=== PATIENT | male | born 1975 | race Two or more races ===

== ENCOUNTER 2020-07-29 12:39 | Emergency (ER) | payer SELFPAY ==
[~2020-07-29] VITALS: Ht 167.6 cm; Wt 109.1 kg
[2020-07-29] MEDS ORDERED: SODIUM CHLORIDE 0.9% 1,000ML IVBOLUS ONE (13:30)
[2020-07-29] MEDS ORDERED: ONDANSETRON 2MG/ML, 2ML IVPush ONE (13:30)
--- NOTE | 2020-07-29 13:43 | NUR ---
PT AMBULATED TO ROOM FROM TRIAGE. PT CO HIGH BS FOR THE PAST 2 WEEKS. PT STATED THAT HIS GLUCOMETER KEEPS READING "HI" DESPITE TAKING METFORMIN DAILY. PT STATED THAT HE HAS HAD INCREASED URINATION AND THIRST FOR 2 WEEKS. PT ALSO STATED THAT HE WAS EXPOSED TO A FAMILY MEMBER POSITIVE FOR COVID 2 WEEKS AGO. PT STATED THAT HE HAS A MILD COUGH AND BODY ACHES.
[2020-07-29] MEDS ORDERED: ONDANSETRON 2MG/ML, 2ML ONE (13:48)
[2020-07-29 14:05] LABS: BASOPHILS % (AUTO) 1 % (0-1); EOSINOPHILS % (AUTO) 4 % (1-7); LYMPHOCYTES % (AUTO) 32 % (22-44); MEAN CORPUSCULAR HEMOGLOBIN 31.3 pg (27.5-34.5); MEAN CORPUSCULAR HGB CONC 34.8 g/dL (33.2-36.2); MEAN PLATELET VOLUME 9.3 fL (7.4-10.4); MONOCYTES % (AUTO) 9 % (2-9); NEUTROPHILS % (AUTO) 55 % (42-75); PLATELET COUNT 220 x10^3/uL (130-400); RED BLOOD COUNT 5.08 x10^6/uL (4.38-5.82); RED CELL DISTRIBUTION WIDTH 12.2 % (9.4-14.8)
[2020-07-29 14:07] LABS: MD NO
[2020-07-29 14:13] LABS: ALANINE AMINOTRANSFERASE 59 U/L (12-78); ALBUMIN 3.3 g/dL (3.4-5.0); ANION GAP 5 mmol/L (5-15); CHLORIDE 103 mmol/L (98-107); CREATININE 1.28 mg/dL (0.7-1.3)
[2020-07-29 14:16] LABS: ALKALINE PHOSPHATASE 109 U/L (45-117); BILIRUBIN,TOTAL 0.4 mg/dL (0.2-1.0); TOTAL PROTEIN 6.8 g/dL (6.4-8.2)
[2020-07-29] MEDS ORDERED: INSULIN REGULAR 100 UNITS/ML, 3ML VIAL SQ-INSULIN ONE (14:30)
--- NOTE | 2020-07-29 14:30 | NUR ---
PT RESTING COMFORTABLY IN [facility]. CALL LIGHT WITHIN REACH.
[2020-07-29] MEDS ORDERED: INSULIN SINGLE DOSE, ER ONE (14:34)
[2020-07-29 14:48] LABS: MICROSCOPIC NOT IND
[2020-07-29 15:25] VITALS: BP 152/88
--- NOTE | 2020-07-29 15:29 | NUR ---
[facility] 431 AFTER 1L IV FLUIDS AND INSULIN. NOTIFIED
--- NOTE | 2020-07-29 16:25 | NUR ---
DISCHARGE INSTRUCTIONS REVIEWED WITH PT. ALL QUESTIONS ANSWERED AT THIS TIME.
== END 2020-07-29 16:27 | disposition home or self-care (01) ==
LOC: ED 16:25
DX: E11.65 Type 2 diabetes mellitus with hyperglycemia (principal); Z20.822 Contact with and (suspected) exposure to COVID-19; E11.620 Type 2 diabetes mellitus with diabetic dermatitis; J02.9 Acute pharyngitis, unspecified; R05 Cough; R06.89 Other abnormalities of breathing
CPT/HCPCS: 36415; 71045; 80053; 81003; 82962; 85025; 96361; 96374; 99284; J1815; J2405; J7030; U0003